=== PATIENT | female | born 1990 | race Caucasian/White ===

== ENCOUNTER 2017-01-19 00:43 | Emergency (ER) | payer OTHER ==
[2017-01-19 00:55] VITALS: TEMP 98.4; BMI 24.2
[2017-01-19] MEDS ORDERED: ASPIRIN 81 MG CHEWABLE TABLETS PO ONE (00:55)
--- NOTE | 2017-01-19 00:55 | PDOC ---
History of Present Illness <Carie Cuellar Sherine - Last Filed: 01/19/17 00:54> <Shannon Richardson - Last Filed: 01/19/17 01:47> - General Stated Complaint: CHEST PAIN/PALPITATIONS - History of Present Illness Initial Comments: 01/19/17 01:26 The patient is a 26 year old female, with a significant past medical history of asthma, who presents to the emergency department with chest pain and heart palpitations for 1.5 weeks. Patient denies having experienced this before. Patient states that around one and a half weeks ago on and of but especially right before she went to bed, she would begin to feel light-headed and her heart would race for 2-3 secs. She states she has feel numbness and pain in her upper extremities starting on the right and radiating on both sides. Earlier today around 9:00 pm when she was eating dinner she says her heart was beating rapidly while sitting. She describes her chest pain as more intense and her heart was beating very rapidly and her vision was temporarily blurred. Currently she is experiencing a left-sided burning like sensation in her chest that does not radiate. Patient also states she is currently taking Vyvanse and was previously taking Adderall. She denies recent fevers, chills, headache or dizziness. She denies recent nausea, vomit, diarrhea or constipation. She denies recent dysuria, frequency, urgency or hematuria. She denies recent shortness of breath. Allergies: NKA Past surgical history: Appendectomy (2000). Dermoid cyst removal in left abdomen. Social history: Nonsmoker. Denies EtOH use and recreational drug use. Primary Care Physician: Stephanie Mallory (hSannon Richardson) Past History - Past Medical History Asthma: Yes - Surgical History Abdominal Surgery: Yes (tumor on L abdomen removed (benign)) Appendectomy: Yes - Reproductive History (#): 0 Para: 0 - Immunization History Immunization Up to Date: Yes - Suicide/Smoking/Psychosocial Hx Smoking Status: No Smoking History: Never smoked Number of Cigarettes Smoked Daily: 0 Hx Alcohol Use: Yes (Socially) Drug/Substance Use Hx: No Substance Use Type: None <Kiel Cuellarjitendra Basurto - Last Filed: 01/19/17 00:54> <Shannon Richardson - Last Filed: 01/19/17 01:47> - Past Medical History Allergies/Adverse Reactions: Allergies Allergy/AdvReac Type Severity Reaction Status Date / Time No Known Allergies Allergy Verified 01/19/17 00:55 Home Medications: Ambulatory Orders Lisdexamfetamine Dimesylate [Vyvanse] 10 mg PO DAILY 01/19/17 Review of Systems <Carie Cuellar Sherine - Last Filed: 01/19/17 00:54> <Shannon Richardson - Last Filed: 01/19/17 01:47> - Review of Systems Comments:: 01/19/17 01:26 CONSTITUTIONAL: Absent: fever, no chills, no fatigue EYES: Absent: visual changes ENT: Absent: ear pain, no sore throat CARDIOVASCULAR: Present: chest pain, palpitations RESPIRATORY: Absent: cough, no SOB GI: Absent: abdominal pain, no nausea, no vomiting, no constipation, no diarrhea GENITOURINARY: Absent: dysuria, no frequency, no hematuria MUSCULOSKELETAL: Absent: back pain, no arthralgia, no myalgia SKIN: Absent: rash NEURO: Absent: headache (Shannon Richardson) *Physical Exam <Kiel Cuellarjitendra Toribioh - Last Filed: 01/19/17 00:54> <Shannon Richardson - Last Filed: 01/19/17 01:47> - Vital Signs Last Vital Signs Temp Pulse Resp BP Pulse Ox 98.4 F 145 H 18 133/103 100 01/19/17 00:53 01/19/17 00:53 01/19/17 00:53 01/19/17 00:53 01/19/17 00:56 - Physical Exam Comments: 01/19/17 01:26 GENERAL: Well-appearing, well-nourished. No apparent distress. HEENT: Normocephalic, atraumatic. PERRL, EOM intact. CARDIOVASCULAR: +Tachycardic. Regular rhythm. PULMONARY: Clear to auscultation bilaterally. No bruits, or JVD in neck ABDOMEN: Soft, non-distended, non-tender. EXTREMITIES: Normal ROM in all four extremities. No gross deformities. No pitting edema. SKIN: Warm, dry. No rash NEUROLOGICAL: No focal neurological deficits. (Shannon Richardson) ED Treatment Course - LABORATORY CBC & Chemistry Diagram: 01/19/17 01:15 01/19/17 01:15 <Shannon Richardson - Last Filed: 01/19/17 01:47> - ADDITIONAL ORDERS Additional order review: Laboratory Results 01/19/17 01:15 PT with INR 11.90 H INR 1.08 01/19/17 01:15 RBC 4.55 MCV 87.7 MCHC 34.9 RDW 12.8 MPV 8.8 Neutrophils % 50.7 D Lymphocytes % 35.5 D Monocytes % 12.2 H D Eosinophils % 0.9 Basophils % 0.7 D - Medications Given in the ED: ED Medications Discontinued Medications Generic Name Dose Route Start Last Admin Trade Name Freq PRN Reason Stop Dose Admin Aspirin 162 mg 01/19/17 00:55 01/19/17 01:31 Asa - PO 01/19/17 00:56 162 mg ONCE ONE Administration *DC/Admit/Observation/Transfer <Carie Cuellar - Last Filed: 01/19/17 00:54> <Shannon Richardson - Last Filed: 01/19/17 01:47> - Referrals Referrals: Shawnee Brown MD [Primary Care Provider] - - Attestations Scribe Attestion: 01/19/17 01:27 Documentation prepared by Shannon Richardson, acting as certified medical technician for Carie Cuellar MD. (Shannon Richardson)
[2017-01-19 01:23] LABS: BASOPHIL 0.7 % (0-2.0); EOSINOPHIL 0.9 % (0-4.5); MCH 30.7 pg (25.7-33.7); MCHC 34.9 g/dl (32.0-36.0); MEAN CELL VOLUME 87.7 fl (80-96); MEAN PLT VOLUME 8.8 fl (7.5-11.1); NEUTROPHILS 50.7 % (42.8-82.8); PLATELET COUNT 249 K/MM3 (134-434); RDW 12.8 % (11.6-15.6); WHITE BLOOD COUNT 6.6 K/mm3 (4.0-10.0)
[2017-01-19] MEDS ORDERED: ASPIRIN 81 MG CHEWABLE TABLETS ONE (01:30)
[2017-01-19 01:35] LABS: INR 1.08 (0.82-1.09); PROTHROMBIN TIME (PATIENT) 11.9 SEC (9.98-11.88)
[2017-01-19 01:39] LABS: URINE MARIJUANA THC NEGATIVE ng/ml (CUTOFF=50)
[2017-01-19] MEDS ORDERED: SODIUM CHLORIDE 1,000 ML IV STA (01:47)
[2017-01-19 01:58] LABS: ALBUMIN 4.3 g/dl (3.4-5.0); ANION GAP 11 (8-16); BILIRUBIN,TOTAL 0.8 mg/dL (0.2-1.0); CALCIUM 9.4 mg/dL (8.5-10.1); CO2 27 mmol/L (21-32); CREATININE 0.9 mg/dL (0.55-1.02); GLUCOSE,RANDOM 105 mg/dL (74-106); MAGNESIUM 2.4 mg/dL (1.8-2.4); SGOT/AST 11 U/L (15-37); SGPT/ALT 17 U/L (12-78); TOT PROT 7.8 g/dl (6.4-8.2)
[2017-01-19 02:01] LABS: ALK PHOS 87 U/L (45-117); CPK 73 IU/L (26-192); TROPONIN I < 0.02 ng/ml (0.00-0.05)
[2017-01-19] MEDS ORDERED: METOPROLOL TARTRATE 25 MG TABLET (FP) PO ONE (02:25)
[2017-01-19] MEDS ORDERED: METOPROLOL TARTRATE 25 MG TABLET (FP) ONE (02:36)
[2017-01-19 06:10] VITALS: BP 93/68; PULSE 69
[2017-01-19 06:26] LABS: CPK 68 IU/L (26-192); TROPONIN I < 0.02 ng/ml (0.00-0.05)
--- NOTE | 2017-01-19 06:34 | PDOC ---
*Physical Exam - Vital Signs Last Vital Signs Temp Pulse Resp BP Pulse Ox 98.4 F 69 14 93/68 100 01/19/17 00:53 01/19/17 06:09 01/19/17 06:09 01/19/17 06:09 01/19/17 06:09 ED Treatment Course - LABORATORY CBC & Chemistry Diagram: 01/19/17 01:15 01/19/17 01:15 - ADDITIONAL ORDERS Additional order review: Laboratory Results 01/19/17 01/19/17 01/19/17 05:50 01:15 01:15 PT with INR INR Sodium Potassium Chloride Carbon Dioxide Anion Gap BUN Creatinine Creat Clearance w eGFR Random Glucose Calcium Magnesium Total Bilirubin AST ALT Alkaline Phosphatase Creatine Kinase 68 Troponin I < 0.02 Total Protein Albumin TSH 3.08 Serum , Qual Opiates Screen Negative Methadone Screen Negative Barbiturate Screen Negative Phencyclidine Screen Negative Ur Amphetamines Screen Positive MDMA (Ecstasy) Screen Negative Benzodiazepines Screen Negative Cocaine Screen Negative U Marijuana (THC) Screen Negative 01/19/17 01/19/17 01/19/17 01:15 01:15 01:15 PT with INR 11.90 H INR 1.08 Sodium 138 Potassium 4.0 Chloride 100 Carbon Dioxide 27 Anion Gap 11 BUN 10 Creatinine 0.9 D Creat Clearance w eGFR > 60 Random Glucose 105 Calcium 9.4 Magnesium 2.4 Total Bilirubin 0.8 D AST 11 L ALT 17 Alkaline Phosphatase 87 D Creatine Kinase 73 Troponin I < 0.02 Total Protein 7.8 Albumin 4.3 TSH Serum , Qual Negative Opiates Screen Methadone Screen Barbiturate Screen Phencyclidine Screen Ur Amphetamines Screen MDMA (Ecstasy) Screen Benzodiazepines Screen Cocaine Screen U Marijuana (THC) Screen 01/19/17 01:15 RBC 4.55 MCV 87.7 MCHC 34.9 RDW 12.8 MPV 8.8 Neutrophils % 50.7 D Lymphocytes % 35.5 D Monocytes % 12.2 H D Eosinophils % 0.9 Basophils % 0.7 D - Medications Given in the ED: ED Medications Discontinued Medications Generic Name Dose Route Start Last Admin Trade Name Freq PRN Reason Stop Dose Admin Aspirin 162 mg 01/19/17 00:55 01/19/17 01:31 Asa - PO 01/19/17 00:56 162 mg ONCE ONE Administration Sodium Chloride 1,000 mls @ 1,000 mls/hr 01/19/17 01:47 01/19/17 01:57 Normal Saline - IV 01/19/17 02:46 1,000 mls/hr ASDIR STA Administration Metoprolol Tartrate 25 mg 01/19/17 02:25 01/19/17 02:40 Lopressor - PO 01/19/17 02:26 25 mg ONCE ONE Administration *DC/Admit/Observation/Transfer Diagnosis at time of Disposition: Chest pain Qualifiers: Chest pain type: unspecified Qualified Code(s): R07.9 - Chest pain, unspecified ; R07.9 - Chest pain, unspecified - Discharge Dispostion Disposition: HOME Condition at time of disposition: Stable Admit: No - Referrals Referrals: Shawnee Brown MD [Primary Care Provider] - - Patient Instructions Printed Discharge Instructions: DI for Chest Pain - Post Discharge Activity Forms/Work/School Notes: Back to Work
--- NOTE | 2017-01-19 13:06 | EKG ---
Test Reason : Blood Pressure : / mmHG Vent. Rate : 110 BPM Atrial Rate : 110 BPM P-R Int : 136 ms QRS Dur : 074 ms QT Int : 314 ms P-R-T Axes : 065 068 046 degrees QTc Int : 424 ms SINUS TACHYCARDIA OTHERWISE NORMAL ECG WHEN COMPARED WITH ECG OF 14-AUG-2013 00:51, NO SIGNIFICANT CHANGE WAS FOUND Confirmed by YUKI ZHENG MD ([id number]) on 01/19/2017 1:05:35 PM Referred By: Confirmed By:YUKI ZHENG MD
== END 2017-01-19 06:41 | disposition home or self-care (01) ==
LOC: JER 00:43
PROC: 3E0337Z Introduction of Electrolytic and Water Balance Substance into Peripheral Vein, Percutaneous Approach (ICD-10-PCS; principal; 2017-01-19)
DX: R07.9 Chest pain, unspecified (principal); J45.909 Unspecified asthma, uncomplicated
CPT/HCPCS: 36415; 71010-TC; 80053; 80307; 83735; 84443; 84484; 84703; 85025; 85610; 93005; 93010; 99283-25

== ENCOUNTER 2017-05-01 21:03 | Emergency (ER) | payer OTHER ==
--- NOTE | 2017-05-01 22:27 | PDOC ---
History of Present Illness - General Chief Complaint: Cold Symptoms Stated Complaint: flu like symptoms since tuesday Time Seen by Provider: 05/01/17 22:09 - History of Present Illness Initial Comments: 05/06/17 07:47 Chief complaint: Nasal congestion, nonproductive cough, fever, body aches, for 2 days. History of present illness: As above. 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 Neck supple without bruit mass or nodes Chest clear, full sounds bilaterally, no wheezes rales or rhonchi CV regular without murmur rub or gallop Abdomen benign Neurological intact Skin clear, no rash, adequate turgor and wet mucous membranes Extremities no CCE Impression: Probable flu, no respiratory distress Plan: Tamiflu and symptomatic treatment, rest and fluids, follow-up ER or primary physician if symptoms worsen or further symptoms develop. Fully ambulatory and in no distress upon discharge to follow-up as recommended Past History - Past Medical History Allergies/Adverse Reactions: Allergies Allergy/AdvReac Type Severity Reaction Status Date / Time No Known Allergies Allergy Verified 01/19/17 00:55 Home Medications: Ambulatory Orders Lisdexamfetamine Dimesylate [Vyvanse] 10 mg PO DAILY 01/19/17 Oseltamivir Phosphate [Tamiflu] 75 mg PO BID #10 capsule 05/01/17 Promethazine/Phenyleph/Codeine [Phenergan VC+Codeine Syrup] 5 - 10 ml PO TID PRN #90 ml MDD 6 05/01/17 Asthma: Yes - Surgical History Abdominal Surgery: Yes (tumor on L abdomen removed (benign)) Appendectomy: Yes - Reproductive History (#): 0 Para: 0 - Immunization History Immunization Up to Date: Yes - Suicide/Smoking/Psychosocial Hx Smoking Status: No Smoking History: Never smoked Have you smoked in the past 12 months: No Number of Cigarettes Smoked Daily: 0 Hx Alcohol Use: Yes (Socially) Drug/Substance Use Hx: No Substance Use Type: None *DC/Admit/Observation/Transfer Diagnosis at time of Disposition: Viral syndrome - Discharge Dispostion Disposition: HOME Condition at time of disposition: Stable Admit: No - Prescriptions Prescriptions: Oseltamivir Phosphate [Tamiflu] 75 mg PO BID #10 capsule Promethazine/Phenyleph/Codeine [Phenergan VC+Codeine Syrup] 5 - 10 ml PO TID PRN #90 ml MDD 6 PRN Reason: Cough - Referrals - Patient Instructions Printed Discharge Instructions: DI for Viral Upper Respiratory Infection -- Adult Additional Instructions: Rest and fluids. Stay out of the cold. Take Tylenol for body aches. Prescribed medication for cough, congestion, and flu. Return to ER if symptoms worsen or follow-up with your primary physician 2-3 days. - Post Discharge Activity Forms/Work/School Notes: Back to School
[2017-05-01 22:40] VITALS: BP 104/70; PULSE 112; TEMP 100.8; BMI 25.0
== END 2017-05-01 22:44 | disposition home or self-care (01) ==
LOC: FER 21:03
DX: B34.9 Viral infection, unspecified (principal); J45.909 Unspecified asthma, uncomplicated
CPT/HCPCS: 99281-25

== ENCOUNTER 2018-07-22 21:00 | Emergency (ER) | payer OTHER ==
[2018-07-22 21:09] VITALS: BP 124/77; PULSE 93; TEMP 98.1; BMI 25.4
[2018-07-22 23:28] LABS: URINE APPEARANCE CLOUDY; URINE BILIRUBIN NEGATIVE (NEGATIVE); URINE COLOR YELLOW; URINE GLUCOSE (UA) NEGATIVE (NEGATIVE); URINE KETONE NEGATIVE (NEGATIVE); URINE LEUK ESTERASE NEGATIVE (NEGATIVE); URINE NITRITE NEGATIVE (NEGATIVE); URINE PROTEIN NEGATIVE (NEGATIVE); URINE UROBILINOGEN 0.2 mg/dL (0.2-1.0)
[2018-07-22 23:38] LABS: HCG,QUALITATIVE URINE Negative
--- NOTE | 2018-07-22 23:48 | PDOC ---
History of Present Illness - General Chief Complaint: Vaginal Sxs Stated Complaint: vaginal irritation Time Seen by Provider: 07/22/18 21:52 History Source: Patient Exam Limitations: No Limitations Past History - Travel Traveled outside of the country in the last 30 days: No Close contact w/someone who was outside of country & ill: No - Past Medical History Allergies/Adverse Reactions: Allergies Allergy/AdvReac Type Severity Reaction Status Date / Time No Known Allergies Allergy Verified 07/22/18 21:10 Home Medications: Ambulatory Orders Lisdexamfetamine Dimesylate [Vyvanse] 10 mg PO DAILY 01/19/17 Oseltamivir Phosphate [Tamiflu] 75 mg PO BID #10 capsule 05/01/17 Promethazine/Phenyleph/Codeine [Phenergan VC+Codeine Syrup] 5 - 10 ml PO TID PRN #90 ml MDD 6 05/01/17 metroNIDAZOLE 0.75% VAG. GEL [Metrogel 0.75% Vaginal Gel -] 1 applic VG BID #1 tube 07/22/18 Asthma: Yes COPD: No - Surgical History Abdominal Surgery: Yes (tumor on L abdomen removed (benign)) Appendectomy: Yes - Reproductive History (#): 0 Para: 0 - Immunization History Immunization Up to Date: Yes - Suicide/Smoking/Psychosocial Hx Smoking Status: No Smoking History: Never smoked Have you smoked in the past 12 months: No Number of Cigarettes Smoked Daily: 0 Information on smoking cessation initiated: No Hx Alcohol Use: No Drug/Substance Use Hx: No Substance Use Type: None Review of Systems - Review of Systems Able to Perform ROS?: Yes Comments:: 07/22/18 23:43 CONSTITUTIONAL: Absent: fever, chills, diaphoresis, generalized weakness, malaise, loss of appetite HEENT: Absent: rhinorrhea, nasal congestion, throat pain, throat swelling, difficulty swallowing, mouth swelling, ear pain, eye pain, visual Changes CARDIOVASCULAR: Absent: chest pain, loss of consciousness, palpitations, irregular heart rate, peripheral edema RESPIRATORY: Absent: cough, shortness of breath, dyspnea with exertion, orthopnea, wheezing, stridor, hemoptysis GASTROINTESTINAL: Absent: abdominal pain, abdominal distension, nausea, vomiting, diarrhea, constipation, melena, hematochezia GENITOURINARY: Absent: dysuria, frequency, urgency, hesitancy, hematuria, flank pain, genital pain MUSCULOSKELETAL: Absent: myalgia, arthralgia, joint swelling SKIN: Absent: rash, itching, pallor HEMATOLOGIC/IMMUNOLOGIC: Absent: easy bleeding, easy bruising, lymphadenopathy, frequent infections ENDOCRINE: Absent: unexplained weight gain, unexplained weight loss, heat intolerance, cold intolerance NEUROLOGIC: Absent: headache, focal weakness or paresthesias, dizziness, unsteady gait, seizure, mental status changes, bladder or bowel incontinence PSYCHIATRIC: Absent: anxiety, depression, suicidal or homicidal ideation, hallucinations. Is the patient limited Wolof proficient: No *Physical Exam - Vital Signs Last Vital Signs Temp Pulse Resp BP Pulse Ox 98.1 F 93 H 16 124/77 100 07/22/18 21:07 07/22/18 21:07 07/22/18 21:07 07/22/18 21:07 07/22/18 21:07 - Physical Exam Comments: 07/22/18 23:44 GENERAL: Well developed, well nourished. Awake and alert. No acute distress. HEENT: Normocephalic, atraumatic. PERRLA, EOMI. No conjunctival pallor. Sclera are non- icteric. Moist mucous membranes. Oropharynx is clear. NECK: Supple. Full ROM. No JVD. Carotid pulses 2+ and symmetric, without bruits. No thyromegaly. No lymphadenopathy. CARDIOVASCULAR: Regular rate and rhythm. No murmurs, rubs, or gallops. Distal pulses are 2+ and symmetric. PULMONARY: No evidence of respiratory distress. Lungs clear to auscultation bilaterally. No wheezing, rales or rhonchi. ABDOMINAL: Soft. Non-tender. Non-distended. No rebound or guarding. No organomegaly. Normoactive bowel sounds. MUSCULOSKELETAL Normal range of motion at all joints. No bony deformities or tenderness. No CVA tenderness. EXTREMITIES: No cyanosis. No clubbing. No edema. No calf tenderness. SKIN: Warm and dry. Normal capillary refill. No rashes. No jaundice. NEUROLOGICAL: Alert, awake, appropriate. Cranial nerves 2-12 intact. No deficits to light touch and temperature in face, upper extremities and lower extremities. No motor deficits in the in face, upper extremities and lower extremities. Normoreflexic in the upper and lower extremities. Normal speech. Toes are down- going bilaterally. Gait is normal without ataxia. PSYCHIATRIC: Cooperative. Good eye contact. Appropriate mood and affect.Pelvic: External genitalia normal without lesions. Vaginal vault is clear without blood or discharge. Cervix is long and closed. No cervical motion tenderness. Uterus is nontender and normal in size. Adnexa are nontender and without masses. ED Treatment Course - ADDITIONAL ORDERS Additional order review: Laboratory Results 07/22/18 23:05 Urine Color Yellow Urine Appearance Cloudy Urine pH 6.0 Ur Specific [place] 1.020 Urine Protein Negative Urine Glucose (UA) Negative Urine Ketones Negative Urine Blood Negative Urine Nitrite Negative Urine Bilirubin Negative Urine Urobilinogen 0.2 Ur Leukocyte Esterase Negative Urine HCG, Qual Negative *DC/Admit/Observation/Transfer Diagnosis at time of Disposition: Vaginal abrasion Qualifiers: Encounter type: initial encounter Qualified Code(s): S30.814A - Abrasion of vagina and vulva, initial encounter - Discharge Dispostion Disposition: HOME Condition at time of disposition: Stable Decision to Admit order: No - Referrals Referrals: Adi Ramos [Primary Care Provider] - - Patient Instructions Printed Discharge Instructions: DI for Vaginal Itching Additional Instructions: You have a vaginal abrasion Please use the metrogel as prescribed Avoid sexual activity until you are healed Your urine was negative for infection 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
== END 2018-07-23 00:01 | disposition home or self-care (01) ==
LOC: JERFT 21:00 → JER 21:00
DX: S30.814A Abrasion of vagina and vulva, initial encounter (principal); X58.XXXA Exposure to other specified factors, initial encounter; Y93.89 Activity, other specified; Y92.89 Other specified places as the place of occurrence of the external cause; Y99.8 Other external cause status
CPT/HCPCS: 81003; 84703; 87086; 99281-25

== ENCOUNTER 2022-07-07 05:26 | Day surgery (SDC) | payer BC ==
[2022-07-06 08:46] VITALS: BMI 27.0
[2022-07-07] MEDS ORDERED: ONDANSETRON 4 MG/2 ML VIAL IVPUSH PRN (12:23)
[2022-07-07] MEDS ORDERED: oxyCODONE HCL 5 MG TABLET PO PRN ×2 (12:23)
[2022-07-07] MEDS ORDERED: PROMETHAZINE HCL 25 MG/1 ML VIAL IVPB PRN (12:23)
[2022-07-07] MEDS ORDERED: LACTATED RINGERS SOLUTION 1,000 ML IV SCH (12:30)
[2022-07-07] MEDS ORDERED: PROPOFOL 20 ML ONE (12:46)
[2022-07-07] MEDS ORDERED: MIDAZOLAM HCL 2 MG/2 ML SINGLE DOSE VIAL ONE (12:46)
[2022-07-07] MEDS ORDERED: ONDANSETRON 4 MG/2 ML VIAL ONE (12:51)
[2022-07-07] MEDS ORDERED: LIDOCAINE HCL/PF 2% SDV 5ML VIAL ONE (12:51)
[2022-07-07] MEDS ORDERED: DEXAMETHASONE SOD PHOSPHATE 4 MG/1 ML VIAL ONE (12:51)
[2022-07-07] MEDS ORDERED: ceFAZolin SODIUM 1 GM VIAL ONE (13:05)
[2022-07-07] MEDS ORDERED: ceFAZolin SODIUM 1 GM VIAL IVPB ONE (13:05)
[2022-07-07] MEDS ORDERED: OXYTOCIN 10 UNITS/ML VIAL ONE (13:11)
[2022-07-07] MEDS ORDERED: ACETAMINOPHEN 325 MG TABLET (FP) PO PRN (13:28)
[2022-07-07] MEDS ORDERED: IBUPROFEN 400 MG TABLET (FP) PO PRN (13:28)
[2022-07-07 15:35] VITALS: RESP 18; TEMP 97.8
[2022-07-07 16:55] VITALS: BP 100/65; PULSE 77
== END 2022-07-07 16:45 | disposition home or self-care (01) ==
LOC: JASU-SURG 05:26
PROVIDERS: ATTEND Specialist
PROC: 10A07ZZ Abortion of Products of Conception, Via Natural or Artificial Opening (ICD-10-PCS; principal; 2022-07-07 11:00)
DX: Z33.2 Encounter for elective termination of pregnancy (principal); Z3A.01 Less than 8 weeks gestation of pregnancy
CPT/HCPCS: 88304-TC; 94760

== ENCOUNTER 2023-07-26 12:36 | Emergency (ER) | payer BC ==
[2023-07-26 12:43] VITALS: BP 122/72; PULSE 76; RESP 18; TEMP 98.2; BMI 25.6
[2023-07-26] MEDS ORDERED: METHOTREXATE SODIUM/PF 25 MG/ML VIAL IM ONE (14:20)
[2023-07-26] MEDS: METHOTREXATE SODIUM/PF 25 MG/ML VIAL IM ONE (15:05)
== END 2023-07-26 15:28 | disposition home or self-care (01) ==
LOC: JERFT 12:36
DX: O28.9 Unspecified abnormal findings on antenatal screening of mother (principal); O26.891 Other specified pregnancy related conditions, first trimester; R10.2 Pelvic and perineal pain; O26.851 Spotting complicating pregnancy, first trimester; Z3A.00 Weeks of gestation of pregnancy not specified
CPT/HCPCS: 99283-25; J9260